=== PATIENT | male | born 1940 | race Caucasian/White ===

== ENCOUNTER 2020-07-10 05:53 | Day surgery (SDC) | payer MEDICARE, BC ==
[2020-07-10] MEDS ORDERED: XYLOCAINE 1% HCL 20 ML MDV ONE (06:25)
[2020-07-10] MEDS ORDERED: BUPIVACAINE 0.5% VIAL IJ ONE (06:25)
[2020-07-10 06:32] VITALS: O2SAT 98
[2020-07-10] MEDS: CEFAZOLIN 2 GM-D5W BAG** 2 GM/50 ML ML IV SCH (06:33)
[2020-07-10] MEDS: Lactated Ringers 1,000 ML IV SCH (06:33)
--- NOTE | 2020-07-10 08:11 | OP ---
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 Pathology: bone left and right 5th proximal phalanx head, hyperkeratotic tissue R 5th digit Complications: none Discription of operation: Following satisfactory pre-op evaluation the patient was brought into the OR and placed on the OR table in the supine position. Sedation was administered by anesthesia team. Following sedation, a well padded pneumatic tourniquet was placed on the R ankle. Local anesthetic was then injected encompassing the R 5th digit consisting of 8cc 0.5% marcaine plain. The foot was then prepped and draped in the usual sterile manner. The foot was exsanguinated by elevation and an esmarch which was applied to the right foot and held in place by a straight hemostat. The foot was then lowered onto the surgical field. Attention was directed to the 4th digit where a horizontal incision was placed at the proximal interphalangeal joint which was check under flouro. Following this a 15 blade was utilized to make an incision being careful not to resect any of the vital neurovascular structures.A 15 blade was then utilized closely along the head of the proximal phalanx medially and laterally to release the capsular and collateral ligaments. Using an ossillating saw the head of the proximal phalanx was resected and removed from the field. The subcuticular tissue was then reapproximated with 2-0 vicryl and the skin edges were coapted using 3-0 nylon in simple interrupted fasion. Attention was directed to the dorsal surface of the R 5th digit where a 2.5cm elliptical incision was made using a 15 blade encompassing the kyperkeratosis overlying the PIPJ. The incision was carefully deepened and the skin flap was lifted and resected off. Attention was then directed to the PIPJ and using a 15 blade the extensor tendon was transected. A 64 blade was then used closely along the head of the proximal phalanx medially and laterally to release the capsular and collateral ligaments. Using an ossillating saw the head of the proximal phalanx was resected and removed from the field. The subcuticular tissue was then reapproximated with 4-0 vicryl and the skin edges were coapted using 4-0 nylon in simple interrupted fasion. A dressing was applied consisting of betadine soaked adaptic, 4x4 gauze, kerlix, and TIM wrap. The tourniquet was then deflated. The patient tolerated anesthesia and the procedure well and was transported to the PACU with VSS and VSI to R foot. Orders for the following were written: 1. dispense surgical shoe for R foot 2. Full weight bearing to the R foot. 3. Keep dressing CDI. 4. Radiographs 3 views R foot 5. Dc when all post op criteria met
[2020-07-10 08:15] VITALS: BP 142/72; PULSE 70
--- NOTE | 2020-07-10 08:46 | XRAY ---
Indication: Right 4th/5th toe arthroplasty. Intraoperative fluoroscopy provided for 3 seconds. 4 digital spot images demonstrates osteotomy involving heads of 4th/5th proximal phalanges. Correlate with intraoperative findings/report.
--- NOTE | 2020-07-10 15:51 | XRAY ---
3 seconds of fluoroscopy was used in surgery for arthroplasty of the right foot 4/5th digits.
== END 2020-07-10 08:36 | disposition home or self-care (01) ==
LOC: SDC 05:53
PROVIDERS: ATTEND Podiatrist Foot & Ankle Surgery
DX: M20.41 Other hammer toe(s) (acquired), right foot (principal); E11.9 Type 2 diabetes mellitus without complications; Z79.899 Other long term (current) drug therapy
CPT/HCPCS: 28285; 73620; 76000; 82947; J0690

== ENCOUNTER 2021-02-25 19:01 | Inpatient (IN) | payer MEDICARE, BC ==
--- NOTE | 2021-02-25 19:06 | ERPHSYRPT ---
- History of Present Illness Time Seen by Provider: 02/25/21 19:06 Historian: patient Exam Limitations: no limitations Physician History: This is a 80-year-old white male who has a history of hypertension, coronary artery disease, diabetes, elevated cholesterol, gastroesophageal reflux disease and is taking Brilinta and presents with 2-day history of initially pain between his scapula which resolved yesterday then yesterday the pain was present in the lumbar region and today the pain is more in his periumbilical region and his abdomen and right side abdomen. He said no nausea vomiting or diarrhea. He is never had any thing like this before. He does not have a cough. He denies shortness of breath and he denies chest pain. His primary care physician is Dr. Barbosa. He states that he has had a colonoscopy within the last couple of years and this was normal per his report. Timing/Duration: day(s) (2), worse Activities at Onset: none Abdominal Pain Onset Location: RUQ, RLQ, periumbilical Pain Radiation: back Severity of Pain-Max: mild (To moderate) Severity of Pain-Current: mild (To moderate) Modifying Factors: Improves With: nothing Associated Symptoms: No chest pain, No diarrhea, No fever/chills, No nausea, No shortness of breath, No vomiting Previous symptoms: no prior history Allergies/Adverse Reactions: No Known Drug Allergies Allergy (Verified 07/10/20 06:04) Home Medications: Amlodipine Besylate 5 mg [Norvasc 5 mg] 5 mg PO DAILY 07/07/20 [History] Aspirin EC 81 mg [Ecotrin 81 mg] 81 mg PO DAILY 07/07/20 [History] Calcium Carbonate/Mag Hydrox [Mylanta Ultra Chew Tab] 1 each PO UD 07/07/20 [History] Enalapril Maleate [Vasotec] 20 mg PO DAILY 07/07/20 [History] Lovastatin 40 mg PO DAILY 07/07/20 [History] Metformin HCl 500 mg [Glucophage 500 MG] 500 mg PO DAILY 07/07/20 [History] Metoprolol Succinate 100 mg [Toprol Xl 100 MG] 100 mg PO DAILY 07/07/20 [History] Nitroglycerin 0.4 mg Tablet [Nitrostat 0.4 MG Tablet] 0.4 mg SL UD 07/07/20 [History] Ticagrelor [Brilinta] 90 mg PO BID 07/07/20 [History] Travel Risk - International Travel Have you traveled outside of the country in past 3 weeks: No - Coronavirus Screening Are you exhibiting any of the following symptoms?: No Close contact with a COVID-19 positive Pt in past 14-21 Days: No - Review of Systems Constitutional: No Symptoms Eyes: No Symptoms Ears, Nose, & Throat: No Symptoms Respiratory: No Symptoms Cardiac: No Symptoms Abdominal/Gastrointestinal: Abdominal Pain Genitourinary Symptoms: No Symptoms Musculoskeletal: No Symptoms Skin: No Symptoms Neurological: No Symptoms Psychological: No Symptoms Endocrine: No Symptoms Hematologic/Lymphatic: No Symptoms Immunological/Allergic: No Symptoms All Other Systems: Reviewed and Negative - Past Medical History Pertinent Past Medical History: Yes Neurological History: No Pertinent History ENT History: No Pertinent History Cardiac History: Coronary Artery Disease, High Cholesterol, Hypertension, Myocardial Infarction ([place]) Respiratory History: No Pertinent History Endocrine Medical History: Diabetes Type II Musculoskeletal History: No Pertinent History GI Medical History: GERD History: No Pertinent History Psycho-Social History: No Pertinent History Male Reproductive Disorders: No Pertinent History Other Medical History: hx of colon polyps - Past Surgical History Past Surgical History: Yes Neuro Surgical History: No Pertinent History Cardiac: Cardiac Catheterization, Cardiac Stent Respiratory: No Pertinent History Gastrointestinal: No Pertinent History Genitourinary: No Pertinent History Musculoskeletal: No Pertinent History Male Surgical History: No Pertinent History - Social History Smoking Status: Never smoker Exposure to second hand smoke: No Drug Use: none - Nursing Vital Signs Nursing Vital Signs: Initial Vital Signs Temperature 99.1 F 02/25/21 19:24 Pulse Rate 99 H 02/25/21 19:24 Respiratory Rate 20 02/25/21 19:24 Blood Pressure 148/87 02/25/21 19:24 O2 Sat by Pulse Oximetry 95 02/25/21 19:24 Pain Scale Pain Intensity 6 - Physical Exam General Appearance: no apparent distress, alert, anxiety Eye Exam: PERRL/EOMI, eyes nml inspection Ears, Nose, Throat Exam: normal ENT inspection, moist mucous membranes Neck Exam: normal inspection, non-tender, supple, full range of motion Respiratory Exam: normal breath sounds, lungs clear, airway intact, No chest tenderness, No respiratory distress Cardiovascular Exam: regular rate/rhythm, normal heart sounds, normal peripheral pulses Gastrointestinal/Abdomen Exam: soft, normal bowel sounds, tenderness (Mild right mid abdomen. 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, normal mood/affect, nml cerebellar function, nml station & gait, sensation nml Skin Exam: normal color, warm, dry Lymphatic Exam: No adenopathy SpO2 Interpretation: normal O2 Delivery: Room Air - Course Nursing assessment & vital signs reviewed: Yes Ordered Tests: Active Orders 24 hr Category Date Time Status IV Insertion STAT Care 02/25/21 19:45 Active ABDOMEN AND PELVIS W/0 CONTRAS [CT] Stat Exams 02/25/21 19:45 Taken AMYLASE Stat Lab 02/25/21 19:20 Completed CBC W DIFF Stat Lab 02/25/21 19:20 Completed CMP Stat Lab 02/25/21 19:20 Completed LIPASE Stat Lab 02/25/21 19:20 Completed Lactic Acid Stat Lab 02/25/21 20:10 Completed UA W/RFX UR CULTURE Stat Lab 02/25/21 19:44 Ordered Medication Summary Generic Name Dose Route Start Last Admin Trade Name Freq PRN Reason Stop Dose Admin Sodium Chloride 1,000 mls @ 250 mls/hr 02/25/21 21:15 Sodium Chloride 0.9% 1000 Ml IV 03/27/21 21:14 .Q4H ANGELIC Discontinued Medications Generic Name Dose Route Start Last Admin Trade Name Freq PRN Reason Stop Dose Admin Meropenem 1 g/ Sodium Chloride 100 mls @ 200 mls/hr 02/25/21 21:04 02/25/21 21:32 IV 02/25/21 21:33 200 mls/hr STAT ONE Administration Sodium Chloride Confirm 02/25/21 21:29 Sodium Chloride 100ml Mini-Bag Plus Administered 02/25/21 21:30 Dose 100 mls @ ud IV .STK-MED ONE Meropenem Confirm 02/25/21 21:28 Meropenem 1 Gm Vial Administered 02/25/21 21:29 Dose 1 g IV .STK-MED ONE Lab/Rad Data: Laboratory Result Diagrams 02/25/21 19:20 02/25/21 19:20 Laboratory Results 02/25/21 02/25/21 02/25/21 Range/Units 20:10 19:20 19:20 WBC 20.7 H (4.0-10.5) K/mm3 RBC 5.10 (4.1-5.6) M/mm3 Hgb 15.2 (12.5-18.0) gm/dl Hct 46.1 (42-50) % MCV 90.4 (78-100) fl MCH 29.8 (26-32) pg MCHC 33.0 (32-36) g/dl RDW 12.9 (11.5-14.0) % Plt Count 491 H (150-450) K/mm3 MPV 9.5 (7.5-11.0) fl Gran % 83.7 H (36.0-66.0) % Eos # (Auto) 0.05 (0-0.5) Absolute Lymphs (auto) 1.66 (1.0-4.6) Absolute Monos (auto) 1.65 H (0.0-1.3) Lymphocytes % 8.0 L (24.0-44.0) % Monocytes % 8.0 (0.0-12.0) % Eosinophils % 0.2 (0.00-5.0) % Basophils % 0.1 (0.0-0.4) % Absolute Granulocytes 17.29 H (1.4-6.9) Basophils # 0.03 (0-0.4) Sodium 134 L (137-145) mmol/L Potassium 4.5 (3.5-5.1) mmol/L Chloride 98 (98-107) mmol/L Carbon Dioxide 21 L (22-30) mmol/L Anion Gap 19.2 H (5-15) MEQ/L BUN 13 (9-20) mg/dL Creatinine 1.00 (0.66-1.25) mg/dL Estimated GFR > 60.0 ML/MIN Glucose 198 H (74-106) mg/dL Lactic Acid 2.1 H (0.4-2.0) Calcium 9.9 (8.4-10.2) mg/dL Total Bilirubin 0.90 (0.2-1.3) mg/dL AST 19 (17-59) U/L ALT 17 (0-50) U/L Alkaline Phosphatase 113 (38-126) U/L Serum Total Protein 7.8 (6.3-8.2) g/dL Albumin 4.8 (3.5-5.0) g/dL Amylase 55 (30-110) U/L Lipase 42 (23-300) U/L Slides for Path Review YES - Progress Progress: improved, pain not gone completely, re-examined Progress Note: 02/25/21 21:57 CAT scan of the abdomen pelvis without contrast shows a distended gallbladder with stranding and tiny free fluid present. The picture is consistent with a calculus cholecystitis. There is a moderate hiatal hernia present with partial intrathoracic stomach. 02/25/21 21:58 Medical decision making: This patient has a calculus cholecystitis that is acute. The patient is diabetic. He has a 20,000 white count. Patient needs admission to the hospital with IV hydration, intravenous antibiotics, repeat labs, and a surgical consultation. I spoke with Dr. Barbosa. She agrees. She accepts the patient for admission Discussed with .: Valentina Counseled pt/family regarding: lab results, diagnosis, rad results - Departure Departure Disposition: In-patient Admission Clinical Impression: Leukocytosis, Acute acalculous cholecystitis Condition: Stable Critical Care Time: No Referrals: KARLEY BARBOSA DO [Primary Care Provider] - Follow up/PCP as directed
[2021-02-25 20:13] LABS: Absolute Neutrophil Ct (ANC) 17.29 (1.4-6.9); BASOPHIL % 0.1 % (0.0-0.4); Basophil (Absolute #) 0.03 (0-0.4); Eosinophil % 0.2 % (0.00-5.0); Eosinophil (Absolute #) 0.05 (0-0.5); Hematocrit 46.1 % (42-50); Hemoglobin 15.2 gm/dl (12.5-18.0); Lymphocyte (Absolute #) 1.66 (1.0-4.6); Mean Cell Volume 90.4 fl (78-100); Mean Corpuscular Hemoglobin 29.8 pg (26-32); Mean Platelet Volume 9.5 fl (7.5-11.0); Monocyte (Absolute #) 1.65 (0.0-1.3); Neutrophil % 83.7 % (36.0-66.0); Platelet Count 491 K/mm3 (150-450); Red Cell Distribution Width 12.9 % (11.5-14.0); White Blood Count 20.7 K/mm3 (4.0-10.5)
[2021-02-25 20:19] LABS: ALBUMIN 4.8 g/dL (3.5-5.0); ALKALINE PHOSPHATASE 113 U/L (38-126); AMYLASE 55 U/L (30-110); ANION GAP 19.2 MEQ/L (5-15); BLOOD UREA NITROGEN 13 mg/dL (9-20); CHLORIDE 98 mmol/L (98-107); Calcium 9.9 mg/dL (8.4-10.2); Carbon Dioxide 21 mmol/L (22-30); EST GLOMERULAR FILTRATION RATE > 60.0 ML/MIN; Glucose 198 mg/dL (74-106); LIPASE 42 U/L (23-300); Potassium 4.5 mmol/L (3.5-5.1); SGOT/AST 19 U/L (17-59); SGPT/ALT 17 U/L (0-50); SODIUM 134 mmol/L (137-145); Total Protein 7.8 g/dL (6.3-8.2)
[2021-02-25 20:32] LABS: Slide Review 1 YES
[2021-02-25] MEDS ORDERED: Merrem 1 GM 1 G in Sodium Chloride 100ML MINI-BAG PLUS 100 ML IV ONE (21:04)
[2021-02-25] MEDS ORDERED: Sodium Chloride 0.9% 1000 ML 1,000 ML IV SCH (21:15)
[2021-02-25] MEDS ORDERED: Merrem 1 GM IV ONE (21:28)
[2021-02-25] MEDS ORDERED: Sodium Chloride 100ML MINI-BAG PLUS 100 ML IV ONE (21:29)
[2021-02-25] MEDS ORDERED: Hydromorphone 1 mg/ml Injection IV ONE (22:10)
[2021-02-25] MEDS ORDERED: Hydromorphone 1 mg/ml Injection ONE (22:24)
[2021-02-25 23:07] LABS: Appearance CLEAR (CLEAR); Bilirubin NEGATIVE (NEGATIVE); Blood NEGATIVE Ery/ul (0-5); Glucose 50 mg/dL (NEGATIVE); Ketones SMALL (NEGATIVE); Leukocyte Esterase NEGATIVE (NEGATIVE); Mucus SLIGHT /HPF (NEGATIVE); Nitrite NEGATIVE (NEGATIVE); Protein,Urine Dip 30 (Negative); Specific Gravity 1.027 (1.005-1.025); Urobilinogen 4 mg/dL (0-1)
[2021-02-26] MEDS ORDERED: HUMULIN R SQ PRN (00:14)
[2021-02-26] MEDS ORDERED: FEVERALL 650 MG PR PRN (00:14)
[2021-02-26] MEDS ORDERED: Zofran 4 MG/2 ML VIAL IV PRN (00:14)
[2021-02-26] MEDS: Sodium Chloride 0.9% 1000 ML 1,000 ML IV SCH ×3 (01:04→12:13)
[2021-02-26] MEDS: Hydromorphone 1 mg/ml Injection IV PRN ×3 (05:23→14:51)
[2021-02-26 05:32] LABS: Absolute Neutrophil Ct (ANC) 14.18 (1.4-6.9); BASOPHIL % 0.1 % (0.0-0.4); Basophil (Absolute #) 0.02 (0-0.4); Eosinophil % 0.2 % (0.00-5.0); Eosinophil (Absolute #) 0.04 (0-0.5); Hematocrit 40.9 % (42-50); Hemoglobin 13.4 gm/dl (12.5-18.0); Lymphocyte (Absolute #) 1.18 (1.0-4.6); Lymphocytes % 6.9 % (24.0-44.0); Mean Cell Volume 91.9 fl (78-100); Mean Corpuscular Hemoglobin 30.1 pg (26-32); Mean Corpuscular Hgb Concent. 32.8 g/dl (32-36); Mean Platelet Volume 9.2 fl (7.5-11.0); Monocyte (Absolute #) 1.74 (0.0-1.3); Monocytes % 10.1 % (0.0-12.0); Neutrophil % 82.7 % (36.0-66.0); Platelet Count 365 K/mm3 (150-450); Red Blood Count 4.45 M/mm3 (4.1-5.6); Red Cell Distribution Width 12.9 % (11.5-14.0); White Blood Count 17.2 K/mm3 (4.0-10.5)
[2021-02-26 06:16] LABS: ALBUMIN 3.8 g/dL (3.5-5.0); ALKALINE PHOSPHATASE 87 U/L (38-126); AMYLASE 44 U/L (30-110); ANION GAP 12.9 MEQ/L (5-15); BLOOD UREA NITROGEN 11 mg/dL (9-20); CHLORIDE 101 mmol/L (98-107); Calcium 8.7 mg/dL (8.4-10.2); Carbon Dioxide 24 mmol/L (22-30); Creatinine 1 0.82 mg/dL (0.66-1.25); EST GLOMERULAR FILTRATION RATE > 60.0 ML/MIN; Glucose 190 mg/dL (74-106); LIPASE 24 U/L (23-300); Potassium 4.5 mmol/L (3.5-5.1); SGOT/AST 16 U/L (17-59); SGPT/ALT 13 U/L (0-50); SODIUM 134 mmol/L (137-145); Total Protein 6.7 g/dL (6.3-8.2)
[2021-02-26 06:45] LABS: Slide Review 1 YES
--- NOTE | 2021-02-26 08:58 | XRAY ---
Indication: Right upper quadrant pain. Nausea, vomiting, diarrhea. Multiple contiguous axial images obtained through the abdomen and pelvis without contrast. Comparison: None Lung bases demonstrates moderate bibasilar subsegmental atelectasis/scarring. 5 mm right middle lobe and 4 mm left lower lobe subpleural noncalcified nodules. Small medial right base calcified granuloma. Heart not enlarged. Moderate sized hiatal hernia with partial intrathoracic stomach. Noncontrasted stomach and bowel loops appear nonobstructed. Normal appendix. Scattered colonic diverticulosis without diverticulitis. Abnormally distended gallbladder with stranding and tiny free fluid concerning for acalculous cholecystitis. 1 cm inferior right hepatic cyst. Left kidney demonstrates a few parapelvic cysts. Tiny splenic calcified granuloma. Remaining pancreas, adrenal glands, kidneys, ureters, and bladder are unremarkable for noncontrast exam. Moderate scattered aortoiliac calcifications without AAA. Osseous structures intact with moderate L4-L5 degenerative changes and superior L2 Schmorl node. Impression: 1. Abnormal distended gallbladder with stranding and tiny free fluid. Rule out acalculous cholecystitis. 2. Bilateral noncalcified pulmonary micronodules as detailed. Findings probably granulomatous as there is old granulomatous disease elsewhere. 3. Incidental hiatal hernia with intrathoracic stomach, colonic diverticulosis, small hepatic cyst, left renal parapelvic cysts, and chronic bony findings.
[2021-02-26] MEDS ORDERED: Levofloxacin 500MG/100ML D5W 500 MG/100 ML BAG IV SCH (10:00)
--- NOTE | 2021-02-26 12:02 | XRAY ---
Indication: Abnormal gallbladder on recent CT. Gallstones. Two-dimensional gallbladder sonogram performed. Comparison: None Pancreas not well seen due to overlying bowel gas. Gallbladder is moderately distended with several tiny gallstones in the dependent portion. Abnormal bladder wall thickening measuring 4.1 mm. No pericholecystic fluid. Common bile duct measures 4.7 mm. No intrahepatic biliary distention. Right lobe the liver demonstrates a 1.1 x 1.0 cm peripheral hyperechogenicity without abnormal color flow or posterior shadowing. No hepatomegaly or ascites. Right kidney measures 8.6 cm in length and sonographically unremarkable. Impression: 1. Nonvisualization pancreas. 2. Abnormal distended gallbladder with tiny gallstones. Also abnormal wall thickening favoring cholecystitis. 3. 1.1 cm right lobe hepatic hyperechogenicity, possible hemangioma. CT liver with contrast using hemangioma protocol may confirmed.
[2021-02-26] MEDS ORDERED: PHARMACY DOSING REQUEST MC ONE (14:20)
[2021-02-26] MEDS ORDERED: TYLENOL 325 MG ONE (14:42)
[2021-02-26] MEDS: TYLENOL 325 MG PO PRN (14:49)
[2021-02-26] MEDS ORDERED: Tums EX 750 MG PO PRN (15:41)
[2021-02-26] MEDS ORDERED: [UNRECOGNIZED DRUG - OTHER] PO SCH (15:45)
[2021-02-26] MEDS ORDERED: Nitrostat 0.4 MG Tablet SL PRN (15:45)
[2021-02-26] MEDS ORDERED: MAG HYDROX PO SCH (15:45)
[2021-02-26] MEDS ORDERED: CALCIUM CARBONATE PO SCH (15:45)
[2021-02-26] MEDS: ZOCOR 20MG PO SCH (16:32)
[2021-02-26] MEDS: NORVASC 5 MG PO SCH (16:32)
[2021-02-26] MEDS: Glucophage 500 MG PO SCH (16:32)
[2021-02-26] MEDS: Vasotec 10 MG PO SCH (16:32)
[2021-02-26] MEDS: Toprol Xl 100 MG PO SCH (16:32)
[2021-02-26] MEDS ORDERED: MEFOXIN 2 GM PREMIX** 2 GM/50 ML ML IV SCH (17:00)
[2021-02-26] MEDS: Zosyn 3.375 GM Vial 3.375 GM in Sodium Chloride 100ML MINI-BAG PLUS 100 ML IV SCH (17:24)
[2021-02-26] MEDS ORDERED: DIPRIVAN 200 MG/20 ML IV ONE (18:00)
[2021-02-26] MEDS ORDERED: Decadron 4 MG INJ ONE (18:00)
[2021-02-26] MEDS ORDERED: Zemuron 100 MG/10 ML ONE (18:00)
[2021-02-26] MEDS ORDERED: BRIDION 200MG/2ML IV ONE (18:00)
[2021-02-26] MEDS ORDERED: Xylocaine-Mpf 2% 5 Ml Vial ONE (18:00)
[2021-02-26] MEDS ORDERED: Zofran 4 MG/2 ML VIAL ONE (18:00)
[2021-02-26] MEDS ORDERED: TORAdol 30 mg Injection ONE (18:00)
[2021-02-26] MEDS ORDERED: SUBLIMAZE 100 MCG/2 ML ONE ×2 (18:00→19:47)
[2021-02-26] MEDS ORDERED: Sensorcaine 0.25% 10 ML ONE (18:09)
[2021-02-26] MEDS ORDERED: PHENYLEPHRINE HCL ONE (18:27)
[2021-02-26] MEDS ORDERED: Thrombin-JMI 5000 UNITS TP ONE (18:47)
[2021-02-26] MEDS ORDERED: Hydromorphone 1 mg/ml Injection ONE (19:47)
[2021-02-26] MEDS ORDERED: Lactated Ringers 1,000 ML IV ONE (19:49)
[2021-02-26] MEDS ORDERED: BRILINTA PO SCH (22:00)
--- NOTE | 2021-02-26 22:39 | PCM.HP ---
History of Present Illness - Chief Complaint Chief Complaint: Acute acalculous cholecystitis History of Present Illness: is a 80 year old gentleman with PMHX HTN, HLD, S/P PR/stents x4 (2003) on Brilinta, NIDDM2,OA ,GERD and Hx colon polyps. He presented to ER with acute onset or periumbilical and right sided pain. Workup showed acute cholecystitis with WBC 20,000.GBUS showed distended GB with multiple tiny stones. Dr Davalos evaluating for surgery after holding Brilinta for 24 hours. IV Levaquin started in ER. - Review of Systems Constitutional: Chills Eyes: No Symptoms Ears, Nose, & Throat: No Symptoms Respiratory: No Symptoms Cardiac: No Symptoms Abdominal/Gastrointestinal: Abdominal Pain (denies N?V?D) Genitourinary Symptoms: No Symptoms Musculoskeletal: No Symptoms Skin: No Symptoms Neurological: No Symptoms Psychological: No Symptoms Medications & Allergies Home Medications: Home Medication List Amlodipine Besylate 5 mg [Norvasc 5 mg] 5 mg PO DAILY 07/07/20 [History Confirmed 02/25/21] Aspirin EC 81 mg [Ecotrin 81 mg] 81 mg PO DAILY 07/07/20 [History Confirmed 02/25/21] Calcium Carbonate/Mag Hydrox [Mylanta Ultra Chew Tab] 1 each PO UD 07/07/20 [History Confirmed 02/25/21] Enalapril Maleate [Vasotec] 20 mg PO DAILY 07/07/20 [History Confirmed 02/25/21] Lovastatin 40 mg PO DAILY 07/07/20 [History Confirmed 02/25/21] Metformin HCl 500 mg [Glucophage 500 MG] 500 mg PO DAILY 07/07/20 [History Confirmed 02/25/21] Metoprolol Succinate 100 mg [Toprol Xl 100 MG] 100 mg PO DAILY 07/07/20 [History Confirmed 02/25/21] Nitroglycerin 0.4 mg Tablet [Nitrostat 0.4 MG Tablet] 0.4 mg SL UD 07/07/20 [History Confirmed 02/25/21] Ticagrelor [Brilinta] 90 mg PO BID 07/07/20 [History Confirmed 02/25/21] Hydrocodone/Acetaminophen [Hydrocodone-Acetamin 5-325 mg] 1 tab PO Q4HPRN PRN #18 tablet MDD 5 02/26/21 [Rx] Amoxicillin/Potassium Clav [Augmentin 875-125 Tablet] 1 each PO BID #14 tablet 02/27/21 [Rx] Allergies/Adverse Reactions: Allergies Allergy/AdvReac Type Severity Reaction Status Date / Time No Known Drug Allergies Allergy Verified 07/10/20 06:04 - Past Medical History Past Medical History: Yes Neurological History: No Pertinent History ENT History: No Pertinent History Cardiac History: Coronary Artery Disease, High Cholesterol, Hypertension, Myocardial Infarction (PR) Respiratory History: No Pertinent History Endocrine Medical History: Diabetes Type II Musculoskelatal History: No Pertinent History, Arthritis GI Medical History: GERD, Gallbladder Disease History: No Pertinent History Pyscho-Social History: No Pertinent History Male Reproductive Disorders: No Pertinent History Comment: hx of colon polyps - Past Surgical History Past Surgical History: Yes Neuro Surgical History: No Pertinent History Cardiac History: Cardiac Catheterization, Cardiac Stent Respiratory Surgery: No Pertinent History GI Surgical History: No Pertinent History Genitourinary Surgical Hx: No Pertinent History Musculskeletal Surgical Hx: No Pertinent History Male Surgical History: No Pertinent History Other Surgical History: foot surgery hammer toe and toe spur - Social History Smoking Status: Never smoker Exposure to second hand smoke: No Alcohol: None Drug Use: none - Physical Exam Vital Signs: Vital Signs - 24 hr Temp Pulse Resp BP Pulse Ox 02/26/21 20:00 23 02/26/21 17:12 98.7 F 101 H 23 130/68 94 L 02/26/21 16:33 18 137/66 02/26/21 16:00 18 02/26/21 14:49 100.1 F 02/26/21 12:00 98.6 F 103 H 23 137/66 94 L 02/26/21 11:56 19 02/26/21 08:00 98.3 F 88 19 136/71 93 L 02/26/21 04:00 99.1 F 86 18 144/81 94 L 02/26/21 00:37 98.3 F 90 18 120/67 94 L 02/26/21 00:02 87 16 119/72 95 02/25/21 23:00 88 18 108/65 95 General Appearance: mild distress Neurologic Exam: alert, oriented x 3, cooperative, normal mood/affect Eye Exam: eyes nml inspection Ears, Nose, Throat Exam: normal ENT inspection Neck Exam: normal inspection Respiratory Exam: normal breath sounds Cardiovascular Exam: regular rate/rhythm Gastrointestinal/Abdomen Exam: normal bowel sounds, tenderness (RUQ and periumbilical), distention, guarding Rectal Exam: not done Back Exam: muscle spasm (no rash) Skin Exam: normal color, warm, dry Results - Labs Lab/Micro Results: Lab Results-Last 24 Hours 02/25/21 02/25/21 02/26/21 Range/Units 22:01 22:29 05:10 WBC 17.2 H (4.0-10.5) K/mm3 RBC 4.45 (4.1-5.6) M/mm3 Hgb 13.4 (12.5-18.0) gm/dl Hct 40.9 L (42-50) % MCV 91.9 (78-100) fl MCH 30.1 (26-32) pg MCHC 32.8 (32-36) g/dl RDW 12.9 (11.5-14.0) % Plt Count 365 (150-450) K/mm3 MPV 9.2 (7.5-11.0) fl Gran % 82.7 H (36.0-66.0) % Eos # (Auto) 0.04 (0-0.5) Absolute Lymphs (auto) 1.18 (1.0-4.6) Absolute Monos (auto) 1.74 H (0.0-1.3) Lymphocytes % 6.9 L (24.0-44.0) % Monocytes % 10.1 (0.0-12.0) % Eosinophils % 0.2 (0.00-5.0) % Basophils % 0.1 (0.0-0.4) % Absolute Granulocytes 14.18 H (1.4-6.9) Basophils # 0.02 (0-0.4) Sodium (137-145) mmol/L Potassium (3.5-5.1) mmol/L Chloride (98-107) mmol/L Carbon Dioxide (22-30) mmol/L Anion Gap (5-15) MEQ/L BUN (9-20) mg/dL Creatinine (0.66-1.25) mg/dL Estimated GFR ML/MIN Glucose (74-106) mg/dL POC Glucometer (74 to 106) mg/dL Calcium (8.4-10.2) mg/dL Total Bilirubin (0.2-1.3) mg/dL AST (17-59) U/L ALT (0-50) U/L Alkaline Phosphatase (38-126) U/L Troponin I (0.000-0.034) ng/mL Serum Total Protein (6.3-8.2) g/dL Albumin (3.5-5.0) g/dL Amylase (30-110) U/L Lipase (23-300) U/L Urine Color YELLOW (YELLOW) Urine Appearance CLEAR (CLEAR) Urine pH 5.0 (5-6) Ur Specific [place] 1.027 (1.005-1.025) Urine Protein 30 (Negative) Urine Ketones SMALL (NEGATIVE) Urine Blood NEGATIVE (0-5) Daniel/ul Urine Nitrite NEGATIVE (NEGATIVE) Urine Bilirubin NEGATIVE (NEGATIVE) Urine Urobilinogen 4 (0-1) mg/dL Ur Leukocyte Esterase NEGATIVE (NEGATIVE) Urine WBC (Auto) NONE (0-5) /HPF Urine RBC (Auto) NONE (0-2) /HPF U Epithel Cells (Auto) NONE (FEW) /HPF Urine Bacteria (Auto) NONE (NEGATIVE) /HPF Urine Mucus (Auto) SLIGHT (NEGATIVE) /HPF Urine Culture Reflexed NO (NO) Urine Glucose 50 (NEGATIVE) mg/dL SARS-CoV-2 (PCR) NEGATIVE (NEGATIVE) Slides for Path Review YES 02/26/21 02/26/21 02/26/21 Range/Units 05:10 07:00 11:50 WBC (4.0-10.5) K/mm3 RBC (4.1-5.6) M/mm3 Hgb (12.5-18.0) gm/dl Hct (42-50) % MCV (78-100) fl MCH (26-32) pg MCHC (32-36) g/dl RDW (11.5-14.0) % Plt Count (150-450) K/mm3 MPV (7.5-11.0) fl Gran % (36.0-66.0) % Eos # (Auto) (0-0.5) Absolute Lymphs (auto) (1.0-4.6) Absolute Monos (auto) (0.0-1.3) Lymphocytes % (24.0-44.0) % Monocytes % (0.0-12.0) % Eosinophils % (0.00-5.0) % Basophils % (0.0-0.4) % Absolute Granulocytes (1.4-6.9) Basophils # (0-0.4) Sodium 134 L (137-145) mmol/L Potassium 4.5 (3.5-5.1) mmol/L Chloride 101 (98-107) mmol/L Carbon Dioxide 24 (22-30) mmol/L Anion Gap 12.9 (5-15) MEQ/L BUN 11 (9-20) mg/dL Creatinine 0.82 (0.66-1.25) mg/dL Estimated GFR > 60.0 ML/MIN Glucose 190 H (74-106) mg/dL POC Glucometer 179 H 190 H (74 to 106) mg/dL Calcium 8.7 (8.4-10.2) mg/dL Total Bilirubin 0.90 (0.2-1.3) mg/dL AST 16 L (17-59) U/L ALT 13 (0-50) U/L Alkaline Phosphatase 87 (38-126) U/L Troponin I (0.000-0.034) ng/mL Serum Total Protein 6.7 (6.3-8.2) g/dL Albumin 3.8 (3.5-5.0) g/dL Amylase 44 (30-110) U/L Lipase 24 (23-300) U/L Urine Color (YELLOW) Urine Appearance (CLEAR) Urine pH (5-6) Ur Specific [place] (1.005-1.025) Urine Protein (Negative) Urine Ketones (NEGATIVE) Urine Blood (0-5) Daniel/ul Urine Nitrite (NEGATIVE) Urine Bilirubin (NEGATIVE) Urine Urobilinogen (0-1) mg/dL Ur Leukocyte Esterase (NEGATIVE) Urine WBC (Auto) (0-5) /HPF Urine RBC (Auto) (0-2) /HPF U Epithel Cells (Auto) (FEW) /HPF Urine Bacteria (Auto) (NEGATIVE) /HPF Urine Mucus (Auto) (NEGATIVE) /HPF Urine Culture Reflexed (NO) Urine Glucose (NEGATIVE) mg/dL SARS-CoV-2 (PCR) (NEGATIVE) Slides for Path Review 02/26/21 02/26/21 02/26/21 Range/Units 12:25 16:49 20:37 WBC (4.0-10.5) K/mm3 RBC (4.1-5.6) M/mm3 Hgb (12.5-18.0) gm/dl Hct (42-50) % MCV (78-100) fl MCH (26-32) pg MCHC (32-36) g/dl RDW (11.5-14.0) % Plt Count (150-450) K/mm3 MPV (7.5-11.0) fl Gran % (36.0-66.0) % Eos # (Auto) (0-0.5) Absolute Lymphs (auto) (1.0-4.6) Absolute Monos (auto) (0.0-1.3) Lymphocytes % (24.0-44.0) % Monocytes % (0.0-12.0) % Eosinophils % (0.00-5.0) % Basophils % (0.0-0.4) % Absolute Granulocytes (1.4-6.9) Basophils # (0-0.4) Sodium (137-145) mmol/L Potassium (3.5-5.1) mmol/L Chloride (98-107) mmol/L Carbon Dioxide (22-30) mmol/L Anion Gap (5-15) MEQ/L BUN (9-20) mg/dL Creatinine (0.66-1.25) mg/dL Estimated GFR ML/MIN Glucose (74-106) mg/dL POC Glucometer 158 H 174 H (74 to 106) mg/dL Calcium (8.4-10.2) mg/dL Total Bilirubin (0.2-1.3) mg/dL AST (17-59) U/L ALT (0-50) U/L Alkaline Phosphatase (38-126) U/L Troponin I < 0.012 (0.000-0.034) ng/mL Serum Total Protein (6.3-8.2) g/dL Albumin (3.5-5.0) g/dL Amylase (30-110) U/L Lipase (23-300) U/L Urine Color (YELLOW) Urine Appearance (CLEAR) Urine pH (5-6) Ur Specific [place] (1.005-1.025) Urine Protein (Negative) Urine Ketones (NEGATIVE) Urine Blood (0-5) Daniel/ul Urine Nitrite (NEGATIVE) Urine Bilirubin (NEGATIVE) Urine Urobilinogen (0-1) mg/dL Ur Leukocyte Esterase (NEGATIVE) Urine WBC (Auto) (0-5) /HPF Urine RBC (Auto) (0-2) /HPF U Epithel Cells (Auto) (FEW) /HPF Urine Bacteria (Auto) (NEGATIVE) /HPF Urine Mucus (Auto) (NEGATIVE) /HPF Urine Culture Reflexed (NO) Urine Glucose (NEGATIVE) mg/dL SARS-CoV-2 (PCR) (NEGATIVE) Slides for Path Review Accuchecks Date 02/26/21 Time 22:00 - Radiology Impressions Radiology Exams & Impressions: Radiology Procedures Category Date Time Status ABDOMEN AND PELVIS W/0 CONTRAS [CT] Stat Exams 02/25/21 19:45 Completed Ultrasound Gallbladder [GALLBLADDER] [US] Stat Exams 02/26/21 Completed Assessment/Plan (1) Acute cholecystitis Current Visit: Yes Status: Resolved Code(s): K81.0 - ACUTE CHOLECYSTITIS (2) Cholelithiasis Current Visit: Yes Status: Acute Qualifiers: Cholecystitis presence: with cholecystitis Cholecystitis acuity: acute Biliary obstruction: without biliary obstruction (3) Leukocytosis Current Visit: No Status: Acute Qualifiers: Leukocytosis type: bandemia Qualified Code(s): D72.825 - Bandemia Assessment & Plan: Levaquin started in the ER,WBC improved from 20,000 to 17,000. Code(s): D72.829 - ELEVATED WHITE BLOOD CELL COUNT, UNSPECIFIED (4) DM2 (diabetes mellitus, type 2) Current Visit: Yes Status: Chronic Qualifiers: Diabetes mellitus intermediate insulin use: without intermediate use Assessment & Plan: monitor (5) Hx of heart artery stent Current Visit: Yes Status: Resolved Assessment & Plan: stable ,troponin normal. Dr Campbell follows. Code(s): Z95.5 - PRESENCE OF CORONARY ANGIOPLASTY IMPLANT AND GRAFT (6) HTN (hypertension) Current Visit: Yes Status: Chronic Assessment & Plan: monitor Code(s): I10 - ESSENTIAL (PRIMARY) HYPERTENSION
[2021-02-26] MEDS: MORPHINE SULFATE 4 MG INJ IV PRN (22:52)
[2021-02-27] MEDS: Sodium Chloride 0.9% 1000 ML 1,000 ML IV SCH ×2 (00:11→08:31)
[2021-02-27] MEDS: Zosyn 3.375 GM Vial 3.375 GM in Sodium Chloride 100ML MINI-BAG PLUS 100 ML IV SCH ×3 (00:11→11:16)
[2021-02-27] MEDS: MORPHINE SULFATE 4 MG INJ IV PRN (01:26)
[2021-02-27 05:49] LABS: Hematocrit 40.4 % (42-50); Hemoglobin 12.8 gm/dl (12.5-18.0); Mean Cell Volume 94.2 fl (78-100); Mean Corpuscular Hemoglobin 29.8 pg (26-32); Mean Corpuscular Hgb Concent. 31.7 g/dl (32-36); Mean Platelet Volume 9.2 fl (7.5-11.0); Platelet Count 342 K/mm3 (150-450); Red Blood Count 4.29 M/mm3 (4.1-5.6); Red Cell Distribution Width 12.9 % (11.5-14.0); White Blood Count 21.9 K/mm3 (4.0-10.5)
[2021-02-27 06:20] LABS: AMYLASE < 30 U/L (30-110)
[2021-02-27 06:22] LABS: ALBUMIN 3.4 g/dL (3.5-5.0); ALKALINE PHOSPHATASE 86 U/L (38-126); ANION GAP 16.6 MEQ/L (5-15); BLOOD UREA NITROGEN 11 mg/dL (9-20); CHLORIDE 100 mmol/L (98-107); Calcium 8.7 mg/dL (8.4-10.2); Carbon Dioxide 21 mmol/L (22-30); Creatinine 1 0.87 mg/dL (0.66-1.25); EST GLOMERULAR FILTRATION RATE > 60.0 ML/MIN; Glucose 259 mg/dL (74-106); Potassium 4.6 mmol/L (3.5-5.1); SGOT/AST 49 U/L (17-59); SGPT/ALT 29 U/L (0-50); SODIUM 133 mmol/L (137-145)
[2021-02-27 06:30] LABS: LIPASE < 10 U/L (23-300)
[2021-02-27] MEDS: Glucophage 500 MG PO SCH (07:53)
[2021-02-27] MEDS: TYLENOL 325 MG PO PRN (08:00)
[2021-02-27] MEDS: NORVASC 5 MG PO SCH (08:52)
[2021-02-27] MEDS: Vasotec 10 MG PO SCH (08:52)
[2021-02-27] MEDS: Toprol Xl 100 MG PO SCH (08:53)
[2021-02-27] MEDS: ZOCOR 20MG PO SCH (08:57)
[2021-02-27] MEDS ORDERED: NON-FORMULARY ITEM (Lovastatin [Lovastatin] 40 MG Tablet) PO SCH (10:00)
[2021-02-27] MEDS ORDERED: ENALAPRIL MALEATE 20 MG PO SCH (10:00)
[2021-02-27 12:46] LABS: BAND 2 % (0.0-2.0); Lymphocytes 6 % (24-44); Neutrophils 92 % (36.-66.); Platelet Estimate NORMAL (NORMAL); Total Cells Counted 100
[2021-02-27] MEDS ORDERED: NORCO 5/325 MG PO ONE (12:47)
[2021-02-27] MEDS ORDERED: NORCO 5/325 MG PO PRN (21:17)
--- NOTE | 2021-03-01 10:42 | CONS ---
CONSULT DATE: 02/26/2021 HISTORY: A 80-year-old with hypertension, heart disease, diabetes, hypercholesterolemia, reflux, had some stents in the past. He had some pain radiating to his back a little bit in the front of the abdomen. He was admitted yesterday with distended gallbladder. Ultrasound with cholelithiasis. Apparently the surgeon salesperson hearing aids yesterday was not contacted according to the nursing staff this evening. They called today asked if I would see the patient from surgical standpoint. PAST MEDICAL HISTORY: Hypertension, heart disease, diabetes, hypercholesterolemia, reflux, PAST SURGICAL HISTORY: He has had some stents in the past. He had colonoscopy in the past. He had history of polyps in the past. Otherwise he had history of myocardial infarction in the past. The patient denied any prior upper abdominal surgery. HOME MEDICATIONS: Amlodipine, aspirin, calcium carbonate, enalapril, metformin, lovastatin, metoprolol, nitroglycerin. He had been on some Brilinta that he took yesterday. Pharmacy said it was okay to proceed with surgical intervention 24 hours later according to the pharmacy recommendations. ALLERGIES: NKDA. FAMILY HISTORY: Negative in regards to this problem. SOCIAL HISTORY: No alcohol abuse. REVIEW OF SYSTEMS: Fourteen systems reviewed. No current chest pain or palpitations otherwise pertinent for as noted above and per preadmission questionnaire. PHYSICAL EXAMINATION: GENERAL: No acute distress. HEENT: Sclera nonicteric. NECK: No JVD. CHEST: Equal excursion, nonlabored breathing. CVS: Regular rate and rhythm. ABDOMEN: Soft, mild tenderness upper abdomen. No peritoneal signs. EXTREMITIES: No significant edema. NEURO: Alert, oriented, moving extremities symmetrically. PSYCH: Appropriate mood and affect. LAB DATA AND TESTS: The patient did receive cardiac clearance. His white count was 17, hemoglobin 13. Platelets were okay at 365,000. His liver function tests were okay. He was cleared by Dr. Campbell. I want anesthesia to see if operative intervention regarding his gallbladder. IMPRESSION: Acute exacerbation of symptomatic cholelithiasis, acute exacerbation of chronic cholecystitis. I feel the patient will benefit from cholecystectomy. Risks and benefits explained in detail including but not limited to bleeding or infection, risk of trocar injury or hernia, risk of bowel, bladder, blood vessel injury, risk of bile leak, bile duct injury, retained stone or sludge possibly requiring further procedure either open or ERCP, general risk of anesthesia, deep venous thrombosis, pulmonary embolism, pneumonia, perioperative risk of aches, pains, bloating, constipation and/or loose stools possibly even chronic in nature, possibility of no improvement in symptoms possibly requiring other work up and/or studies, possible open procedure, increase aches and pains, risk of loose stools, constipation possibly chronic in nature, general risk of bloating, aches or pains. He understands and agrees to the planned procedure, will proceed with laparoscopic cholecystectomy possible open when OR time available.
--- NOTE | 2021-03-01 11:23 | OP ---
SURGERY DATE/TIME: 02/26/2021 1810 PREOPERATIVE DIAGNOSIS: Acute cholecystitis/cholelithiasis. History of heart disease with stents. POSTOPERATIVE DIAGNOSIS: Severe acute cholecystitis/cholelithiasis. History of heart disease with stents. PROCEDURE: Laparoscopic cholecystectomy, difficult. SURGEON: Dr. Ivan Davalos. ANESTHESIA: General. ESTIMATED BLOOD LOSS: Minimal. INDICATIONS: As noted above. Risks and benefits explained in detail but not limited to and consent obtained. DESCRIPTION OF PROCEDURE AND FINDINGS: The patient is taken to the operating room. General anesthesia induced. Abdomen prepped and draped in the usual sterile fashion. After official time out and no disagreement with planned procedure, a transverse incision made at the supraumbilical area. Fascia grasped and pulled upward. Veress needle inserted and tested with saline. Pneumoperitoneum accomplished insufflating opening pressure of 0-15. A 5 mm bladeless port and camera inserted without difficulty followed by two - 5 mm right upper quadrant ports and 12 mm epigastric port. The patient had severe cholecystitis with extensive omental caking up over liver requiring using the LigaSure to take the omental adhesions down off the anterior abdominal wall to even get to the gallbladder. The gallbladder was so tense it could not be grasped. It required inserting Veress needle and 60 cc syringe aspirating 40 or 50 cc of hydrops to allow the gallbladder to be grasped. It required LigaSure to release some lateral omental adhesions to allow the gallbladder to be pulled upward dissecting posterior, lateral to anterior fashion. The main cystic artery isolated directly on the gallbladder wall clipped and divided in the usual fashion this opened up the angle. The cystic duct and infundibular junction slowly and carefully well skeletonized until the critical view obtained both anteriorly and posteriorly. It was then clipped x3 and divided with large clip wire inserter given extensive inflammation. It should be noted that the lateral edge of the liver is raw and oozing. He had been on Brilinta recently. The pharmacy assured us that the time had passed to be off of Brilinta for safe proceeding but the patient was very oozy required using some Surgicel packing at the edge of the liver. There was no particular vessel to clip or ligate. Brief bursts of cautery cauterized the liver surface. We continued the dissection. Again, it was a very concrete inflamed gallbladder with all of this extensive severe concrete inflammation and raw ooze from the gallbladder bed and pocket added an extra hour on dissection time. LigaSure used to seal small veins directly on the gallbladder wall and these were clipped as necessary. A slow careful dissection carried up to the anterior edge of the liver. Even with this, the liver was wanting to peel part of the upper parenchyma a little bit towards the anterior edge of the liver creating more generalized ooze. There was no specific vessel to clip or ligate. The gallbladder was then packed with some Surgicel SNoW but again as there was no specific vessel to clip or cauterize. Gallbladder was released from final attachments to the anterior edge of the liver and it was placed in the provided sac and also pulled up into the bag and opened outside the abdomen. Some small to medium sized stones removed allowing the gallbladder bag to be pulled free and passed off out the cannulated port wound. It was necessary to enlarge the fascial defect with clamps however to allow this to happen. The port replaced. Copious amount of irrigation accomplished lateral to the liver and subhepatic space irrigating until clear. Appeared to have adequate hemostasis. A small piece of plain Surgicel placed on one raw edge of the liver surface. Again, there were no specific vessel to clip or cauterize. Given extensive inflammatory reaction, LUIS drain placed subhepatic space out through a lateral portion incision secured with PDS suture and placed to bulb suction. Fascial defect in the 12 mm site closed with puncture closure device with figure-of-8 with #1 Vicryl. Pneumoperitoneum decompressed. Skin incision closed with 4-0 Vicryl after irrigating the wounds out. Drain secured with PDS suture and placed to bulb suction. There were no immediate complications. With extensive inflammatory reaction in this patient who had been on Brilinta recently with severe cholecystitis adding an additional hour on top of the usual operative time making it a difficult case requiring the use of LigaSure, drains, Surgicel. There was no family to discuss the findings with. He is transferred to the recovery room in stable condition.
== END 2021-02-27 13:39 | disposition home or self-care (01) | DRG 419 ==
LOC: ED 19:01 → MED SURG 02-26 00:04
PROVIDERS: ADMIT Family Medicine; ATTEND Family Medicine
PROC: 0FT44ZZ Resection of Gallbladder, Percutaneous Endoscopic Approach (ICD-10-PCS; principal; 2021-02-26)
DX: K80.00 Calculus of gallbladder with acute cholecystitis without obstruction (principal); D72.829 Elevated white blood cell count, unspecified; E11.9 Type 2 diabetes mellitus without complications; Z95.5 Presence of coronary angioplasty implant and graft; I10 Essential (primary) hypertension; Z20.822 Contact with and (suspected) exposure to COVID-19; Z79.899 Other long term (current) drug therapy; Z86.79 Personal history of other diseases of the circulatory system; E78.00 Pure hypercholesterolemia, unspecified
CPT/HCPCS: 36000; 36415; 47562; 74176; 76705; 80053; 81001; 82150; 82947; 83605; 83690; 84484; 85025; 93005; 96374; 99284; U0003; 88304; 99100; J0694; J1100; J1170; J1885; J1956; J2270; J2370; J2405; J2704; J3010; A9270-GY